=== PATIENT | female | born 1980 | race Two or more races ===

== ENCOUNTER 2023-09-04 16:08 | Inpatient (IN) | payer OTHER ==
[~2023-09-04] VITALS: Ht 157.5 cm; Wt 54.8 kg
[2023-09-04 17:06] LABS: Urine Bacteria NONE SEEN /hpf (None Seen); Urine Blood Negative /uL (Negative); Urine Clarity Clear (Clear); Urine Color Colorless (Yellow); Urine Protein, UAD 2+ (Negative); Urine Specific Gravity 1.005 (1.001-1.035); Urine Urobilinogen Normal (Negative); Urine WBC 2 /hpf (0 - 5); Urine pH 8.5 (5.0-9.0)
[2023-09-04 17:19] LABS: Basophils # (auto) 0 10 ^3/uL (0-0.2); Basophils % (auto) 0.3 % (0.0-2.0); Eosinophils # (auto) 0.1 10 ^3/uL (0-0.8); Eosinophils % (auto) 0.5 % (0.0-7.0); Hematocrit 32.5 % (36.0-46.0); Hemoglobin 10.6 g/dL (12.2-16.2); Lymphocytes # (auto) 0.4 10 ^3/uL (0.4-5.4); Lymphocytes % (auto) 3.3 % (10.0-50.0); Mean Corpuscular Hemoglobin 30.6 pg (28.0-32.0); Mean Corpuscular Hgb Conc. 32.7 g/dL (32.0-36.0); Mean Corpuscular Volume 93.6 fL (80.0-100.0); Monocytes # (auto) 1.5 10 ^3/uL (0-1.3); Neutrophils # (auto) 9.8 10 ^3/uL (1.6-8.6); Neutrophils % (auto) 82.9 % (37.0-80.0); Red Blood Cells 3.47 10^6/uL (4.0-5.20); Red Cell Distribution Width 13.9 % (11.8-14.3); White Blood Cell 11.9 10^3/uL (4.4-10.8)
[2023-09-04 17:27] LABS: Alanine Aminotransferase 12 U/L (7-40); Alkaline Phosphatase 86 U/L (46-116); Anion Gap 5 (5-15); Aspartate Aminotransferase 16 U/L (13-40); BUN/Creatinine Ratio 3.7 (10.0-20.0); Blood Urea Nitrogen 15 mg/dL (9-23); Carbon Dioxide 35 mmol/L (20-30); Chloride 94 mmol/L (98-107); Glucose 140 mg/dL (74-106); Lipase 49 U/L (12-53); Potassium 3.6 mmol/L (3.5-5.1); Sodium 134 mmol/L (136-145)
[2023-09-04 17:28] LABS: Albumin 3.7 g/dL (3.2-4.8); Bilirubin, Total 0.7 mg/dL (0.2-1.0); Total Protein 6.8 g/dL (5.7-8.2)
[2023-09-04] MEDS ORDERED: metroNIDAZOLE 500MG/100ML 100 ML IV ONE (19:00)
[2023-09-04] MEDS: DICYCLOMINE HCL (10MG/ML) 2 ML AMPULE IM ONE (20:16)
[2023-09-04] MEDS: PANTOPRAZOLE 40 MG/10 ML VIAL INJ IV ONE (20:16)
[2023-09-04] MEDS: cefTRIAXone 1GM/50ML D5W 50 ML IV ONE (20:16)
[2023-09-04] MEDS: ONDANSETRON HCL 4 MG/2 ML VIAL IV PRN (20:18)
[2023-09-04] MEDS: MORPHINE SULFATE INJ 2 MG/ml SYRG IV PRN (20:18)
[2023-09-04] MEDS: metroNIDAZOLE 500MG/100ML 100 ML IV SCH (22:55)
[2023-09-05] MEDS ORDERED: CLIN1CAP70 PO (01:09)
[2023-09-05] MEDS ORDERED: HYDR50TA47 PO (01:09)
[2023-09-05] MEDS ORDERED: SEVE800T8 PO (01:09)
[2023-09-05] MEDS ORDERED: FURO40TA4 PO (01:09)
[2023-09-05 05:00] VITALS: BP 147/87; PULSE 56; RESP 16; TEMP 98.3; O2SAT 98
[2023-09-05] MEDS: DICYCLOMINE HCL 10 MG CAP PO SCH (06:02)
[2023-09-05 07:21] LABS: Basophils # (auto) 0 10 ^3/uL (0-0.2); Basophils % (auto) 0.3 % (0.0-2.0); Eosinophils # (auto) 0.1 10 ^3/uL (0-0.8); Eosinophils % (auto) 1.5 % (0.0-7.0); Hematocrit 27.1 % (36.0-46.0); Hemoglobin 9.1 g/dL (12.2-16.2); Lymphocytes # (auto) 0.6 10 ^3/uL (0.4-5.4); Lymphocytes % (auto) 6.3 % (10.0-50.0); Mean Corpuscular Hemoglobin 31.5 pg (28.0-32.0); Mean Corpuscular Hgb Conc. 33.4 g/dL (32.0-36.0); Mean Corpuscular Volume 94.4 fL (80.0-100.0); Monocytes # (auto) 1.6 10 ^3/uL (0-1.3); Monocytes % (auto) 17.2 % (0.0-12.0); Neutrophils # (auto) 7.1 10 ^3/uL (1.6-8.6); Neutrophils % (auto) 74.7 % (37.0-80.0); Red Blood Cells 2.87 10^6/uL (4.0-5.20); Red Cell Distribution Width 13.7 % (11.8-14.3); White Blood Cell 9.5 10^3/uL (4.4-10.8)
[2023-09-05 07:44] LABS: Albumin 3.1 g/dL (3.2-4.8); Alkaline Phosphatase 66 U/L (46-116); Anion Gap 3 (5-15); Aspartate Aminotransferase 14 U/L (13-40); BUN/Creatinine Ratio 4.7 (10.0-20.0); Bilirubin, Total 0.4 mg/dL (0.2-1.0); Blood Urea Nitrogen 24 mg/dL (9-23); Calcium 8.1 mg/dL (8.5-10.1); Carbon Dioxide 33 mmol/L (20-30); Chloride 98 mmol/L (98-107); Glucose 88 mg/dL (74-106); Sodium 134 mmol/L (136-145); Total Protein 5.6 g/dL (5.7-8.2)
[2023-09-05 07:56] LABS: Alanine Aminotransferase < 9 U/L (7-40)
[2023-09-05 09:00] VITALS: BP 137/70; PULSE 81; RESP 17; TEMP 98.6; O2SAT 96
[2023-09-05] MEDS: cefTRIAXone 1GM/50ML D5W 50 ML IV SCH (10:10)
[2023-09-05] MEDS: PANTOPRAZOLE 40 MG/10 ML VIAL INJ IV SCH (10:10)
[2023-09-05 13:00] VITALS: BP 130/70; PULSE 80; RESP 16; TEMP 97.6; O2SAT 95
[2023-09-05 17:00] VITALS: BP 142/78; PULSE 85; RESP 18; TEMP 98.2; O2SAT 97
[2023-09-05] MEDS: VANCOMYCIN HCL 250 MG CAP PO SCH (17:20)
[2023-09-05 21:00] VITALS: BP 133/73; PULSE 84; RESP 18; TEMP 98.6; O2SAT 98
[2023-09-06 01:00] VITALS: BP 120/60; PULSE 82; RESP 17; TEMP 98.6; O2SAT 98
[2023-09-06 05:00] VITALS: BP 132/64; PULSE 82; RESP 16; TEMP 98.4; O2SAT 97
[2023-09-06 08:00] VITALS: BP 140/82; PULSE 85; RESP 16; TEMP 98.8; O2SAT 93
[2023-09-06 12:00] VITALS: BP 139/85; PULSE 81; RESP 16; TEMP 98.3; O2SAT 97
[2023-09-06 16:00] VITALS: BP 139/72; PULSE 87; RESP 16; TEMP 98.1; O2SAT 97
[2023-09-06 21:00] VITALS: BP 150/86; PULSE 87; RESP 16; TEMP 98; O2SAT 97
[2023-09-07 01:00] VITALS: BP 135/77; PULSE 82; RESP 18; TEMP 98.2; O2SAT 97
[2023-09-07 05:00] VITALS: BP 150/86; PULSE 87; RESP 16; TEMP 98; O2SAT 99
[2023-09-07 08:00] VITALS: PULSE 93; RESP 18; O2SAT 93
[2023-09-07 09:00] VITALS: BP 135/90; PULSE 93; RESP 18; TEMP 98.8; O2SAT 95
[2023-09-07] MEDS ORDERED: VANC125PO PO (10:26)
[2023-09-07] MEDS ORDERED: METR-344 PO (10:26)
[2023-09-07 12:45] VITALS: BP 135/86; PULSE 89; RESP 16; TEMP 98.5; O2SAT 96
[2023-09-08] MEDS ORDERED: SODIUM CHL 0.9% 1000 ML BAG XX ONE (07:00)
[2023-09-08] MEDS ORDERED: EPOETIN ALFA-EPBX 4,000 UNIT/ML VIAL SC ONE (21:00)
== END 2023-09-07 14:59 | disposition home or self-care (01) | DRG 720 ==
LOC: ER 16:08 → WEST WING 19:00 → OVERFLOW 19:00 → WEST WING 21:52
PROVIDERS: ADMIT Nurse Practitioner Family; ATTEND Family Medicine
DX: A41.9 Sepsis, unspecified organism (principal); I12.0 Hypertensive chronic kidney disease with stage 5 chronic kidney disease or end stage renal disease; N18.6 End stage renal disease; A04.72 Enterocolitis due to Clostridium difficile, not specified as recurrent; E87.1 Hypo-osmolality and hyponatremia; D63.1 Anemia in chronic kidney disease; R18.8 Other ascites; K52.9 Noninfective gastroenteritis and colitis, unspecified; Z99.2 Dependence on renal dialysis
CPT/HCPCS: 36415; 71045; 74176; 80053; 81001; 81025; 82140; 82270; 83690; 85025; 85048; 87040; 87081; 87493; 93306; C9113; G0378; J2405; J3490

== ENCOUNTER 2023-10-15 17:57 | Inpatient (IN) | payer OTHER ==
[~2023-10-15] VITALS: Ht 157.5 cm; Wt 52.4 kg
[~2023-10-15 17:57] MED LIST: CLIN1CAP70 PO; FURO40TA4 PO; HYDR50TA47 PO; METR-344 PO; SEVE800T8 PO; VANC125PO PO
[2023-10-15 19:01] LABS: Urine Bacteria None Seen /hpf (None Seen)
[2023-10-15 19:15] LABS: Urine Blood Negative /uL (Negative); Urine Clarity Turbid (Clear); Urine Color Light-Yellow (Yellow); Urine Protein, UAD 3+ (Negative); Urine Specific Gravity 1.009 (1.001-1.035); Urine Urobilinogen Normal (Negative); Urine WBC 9 /hpf (0 - 5); Urine pH 8.5 (5.0-9.0)
[2023-10-15 19:40] LABS: Basophils # (auto) 0.1 10 ^3/uL (0-0.2); Basophils % (auto) 0.8 % (0.0-2.0); Eosinophils # (auto) 0.2 10 ^3/uL (0-0.8); Eosinophils % (auto) 3.2 % (0.0-7.0); Lymphocytes # (auto) 1.3 10 ^3/uL (0.4-5.4); Lymphocytes % (auto) 17.3 % (10.0-50.0); Mean Corpuscular Hemoglobin 29.5 pg (28.0-32.0); Mean Corpuscular Hgb Conc. 31.3 g/dL (32.0-36.0); Mean Corpuscular Volume 94.4 fL (80.0-100.0); Monocytes # (auto) 0.7 10 ^3/uL (0-1.3); Monocytes % (auto) 8.7 % (0.0-12.0); Neutrophils # (auto) 5.3 10 ^3/uL (1.6-8.6); Red Blood Cells 3.39 10^6/uL (4.0-5.20); Red Cell Distribution Width 15.6 % (11.8-14.3); White Blood Cell 7.5 10^3/uL (4.4-10.8)
[2023-10-15 20:56] LABS: Glucose 100 mg/dL (74-106)
[2023-10-15 20:57] LABS: Alkaline Phosphatase 69 U/L (46-116); BUN/Creatinine Ratio 7.6 (10.0-20.0); Blood Urea Nitrogen 55 mg/dL (9-23); Lipase 99 U/L (12-53)
[2023-10-15 20:58] LABS: Alanine Aminotransferase 17 U/L (7-40)
[2023-10-15 20:59] LABS: Albumin 3.9 g/dL (3.2-4.8); Aspartate Aminotransferase 20 U/L (13-40); Bilirubin, Total 0.4 mg/dL (0.2-1.0); Total Protein 7.2 g/dL (5.7-8.2)
[2023-10-15 21:10] LABS: Anion Gap 9 (5-15); Carbon Dioxide 27 mmol/L (20-30); Chloride 97 mmol/L (98-107); Sodium 133 mmol/L (136-145)
[2023-10-15 21:30] VITALS: O2SAT 100
[2023-10-15] MEDS: ALBUTEROL SULF 2.5 MG/0.5ML(0.5%) NEB SOLN NEB ONE (21:30)
[2023-10-15] MEDS ORDERED: MORPHINE SULFATE INJ 2 MG/ml SYRG IV PRN (22:15)
[2023-10-15] MEDS ORDERED: TEMAZEPAM 15 MG CAP PO PRN (22:15)
[2023-10-15] MEDS ORDERED: NITROGLYCERIN 0.4 MG SL TAB SL PRN (22:15)
[2023-10-15] MEDS ORDERED: HYDROcodone-ACET 5/325MG TAB PO PRN (22:15)
[2023-10-15] MEDS ORDERED: ONDANSETRON HCL 4 MG/2 ML VIAL IV PRN (22:15)
[2023-10-15] MEDS ORDERED: ACETAMINOPHEN 325 MG TAB PO PRN (22:15)
[2023-10-15] MEDS ORDERED: ALBUTEROL SULF 2.5 MG/0.5ML(0.5%) NEB SOLN NEB PRN (22:15)
[2023-10-15] MEDS: DEXTROSE (50%) 50ML SYRG IV ONE (22:37)
[2023-10-15] MEDS: CALCIUM GLUC 1,000mg/50ml-NS 50 ML IV ONE (22:39)
[2023-10-15] MEDS: InsuLIN REG 1unit/0.01ml Soln (100units/ml) IV ONE (22:39)
[2023-10-15] MEDS: SODIUM ZIRCONIUM CYCL 10 GM PAK PO ONE (22:39)
[2023-10-15] MEDS: SODIUM BICARB 8.4% 50Meq/50ml SYR INJ IV ONE (22:41)
[2023-10-15 22:58] VITALS: PULSE 91; RESP 16; O2SAT 100
[2023-10-16] VITALS (9 sets, daily range): BP systolic 137–159; BP diastolic 73–84; PULSE 73–91; RESP 15–20; TEMP 97.8–98.3; O2SAT 95–100
[2023-10-16 05:29] LABS: Alanine Aminotransferase 16 U/L (7-40); Albumin 3.5 g/dL (3.2-4.8); Alkaline Phosphatase 72 U/L (46-116); Anion Gap 11 (5-15); Aspartate Aminotransferase 18 U/L (13-40); Bilirubin, Total 0.4 mg/dL (0.2-1.0); Blood Urea Nitrogen 59 mg/dL (9-23); Calcium 9.4 mg/dL (8.7-10.4); Carbon Dioxide 27 mmol/L (20-30); Chloride 97 mmol/L (98-107); Glucose 113 mg/dL (74-106); Sodium 135 mmol/L (136-145); Total Protein 6.5 g/dL (5.7-8.2)
[2023-10-16 05:34] LABS: Basophils # (auto) 0 10 ^3/uL (0-0.2); Basophils % (auto) 0.5 % (0.0-2.0); Eosinophils # (auto) 0.2 10 ^3/uL (0-0.8); Eosinophils % (auto) 2.3 % (0.0-7.0); Hematocrit 28.8 % (36.0-46.0); Hemoglobin 9.5 g/dL (12.2-16.2); Mean Corpuscular Hemoglobin 30.6 pg (28.0-32.0); Mean Corpuscular Hgb Conc. 33.1 g/dL (32.0-36.0); Mean Corpuscular Volume 92.5 fL (80.0-100.0); Monocytes # (auto) 0.8 10 ^3/uL (0-1.3); Monocytes % (auto) 9.8 % (0.0-12.0); Neutrophils # (auto) 5.8 10 ^3/uL (1.6-8.6); Neutrophils % (auto) 74.4 % (37.0-80.0); Red Blood Cells 3.11 10^6/uL (4.0-5.20); Red Cell Distribution Width 15.4 % (11.8-14.3); White Blood Cell 7.8 10^3/uL (4.4-10.8)
[2023-10-16 06:30] LABS: Potassium 5.7 mmol/L (3.5-5.1)
[2023-10-16] MEDS: hydrALAZINE HCL 25 MG TAB PO SCH (06:30)
[2023-10-16] MEDS: SODIUM ZIRCONIUM CYCL 10 GM PAK PO ONE ×2 (07:15→18:29)
[2023-10-16 07:42] LABS: INR 1.16 (0.9-1.15); Partial Thromboplastin Time 27.5 SEC (24.5-34.5); Prothrombin Time 12.2 sec (9.3-11.8)
[2023-10-16] MEDS: SEVELAMER 800 MG TAB PO SCH (08:00)
[2023-10-16] MEDS: CARVEDILOL 12.5 MG TAB PO SCH (10:13)
[2023-10-16] MEDS: B-COMPLEX W/ C & FOLIC ACID(NEPHROVITE TAB) PO SCH (10:13)
[2023-10-16 14:43] LABS: Body Fluid Red Blood Cells 328 CUMM (0-2000); Body Fluid White Blood Cells 148 CUMM (0-200)
[2023-10-16 14:48] LABS: Body Fluid Polymorphonuclear 8 % (0-25)
[2023-10-17] VITALS (8 sets, daily range): BP systolic 139–161; BP diastolic 75–88; PULSE 76–87; RESP 17–20; TEMP 97.5–98.9; O2SAT 93–99
[2023-10-17 06:58] LABS: Hematocrit 29.5 % (36.0-46.0); Hemoglobin 9.6 g/dL (12.2-16.2)
[2023-10-17 12:05] LABS: Chloride 97 mmol/L (98-107); Sodium 133 mmol/L (136-145)
[2023-10-17 12:06] LABS: Anion Gap 11 (5-15); Calcium 8.6 mg/dL (8.7-10.4); Carbon Dioxide 25 mmol/L (20-30)
[2023-10-17 12:11] LABS: BUN/Creatinine Ratio 8.3 (10.0-20.0); Glucose 99 mg/dL (74-106)
[2023-10-17 12:26] LABS: Blood Urea Nitrogen 69 mg/dL (9-23); Potassium 5.9 mmol/L (3.5-5.1)
[2023-10-17 13:07] LABS: Protein, Body Fluid 4.5 g/dL (.)
[2023-10-17] MEDS: SODIUM CHL 0.9% 1000 ML BAG XX ONE (14:31)
[2023-10-17] MEDS ORDERED: EPOETIN ALFA-EPBX 10,000 UNIT/1ML VIAL SC ONE (21:00)
== END 2023-10-17 18:58 | disposition home or self-care (01) ==
LOC: ER 17:57 → TELE 22:19 → TELE-CENTR 10-16 15:15
PROVIDERS: ADMIT Nurse Practitioner; ATTEND Nurse Practitioner Acute Care
PROC: 0W9G3ZZ Drainage of Peritoneal Cavity, Percutaneous Approach (ICD-10-PCS; principal; 2023-10-16)
PROC: 5A1D70Z Performance of Urinary Filtration, Intermittent, Less than 6 Hours Per Day (ICD-10-PCS; 2023-10-17)
DX: K74.60 Unspecified cirrhosis of liver (principal); I12.0 Hypertensive chronic kidney disease with stage 5 chronic kidney disease or end stage renal disease; J90 Pleural effusion, not elsewhere classified; N18.6 End stage renal disease; R18.8 Other ascites; D63.8 Anemia in other chronic diseases classified elsewhere; E87.70 Fluid overload, unspecified; E87.5 Hyperkalemia; Z99.2 Dependence on renal dialysis
CPT/HCPCS: 36415; 49083; 71045; 74176; 76705; 76942; 80048; 80053; 81001; 81025; 82962; 83690; 83880; 83986; 84484; 85014; 85018; 85025; 85610; 85730; 87205; 89051; 90935; 94644; G0378; J1815

== ENCOUNTER 2023-11-09 22:44 | Emergency (ER) | payer OTHER ==
[~2023-11-09] VITALS: Ht 157.5 cm; Wt 51.6 kg
[2023-11-10 02:55] VITALS: BP 145/91; PULSE 95; RESP 18; TEMP 97.7; O2SAT 98
== END 2023-11-10 02:54 | disposition home or self-care (01) ==
LOC: ER 22:44
DX: I12.0 Hypertensive chronic kidney disease with stage 5 chronic kidney disease or end stage renal disease (principal); N18.6 End stage renal disease; R18.8 Other ascites; Z98.890 Other specified postprocedural states; Z79.899 Other long term (current) drug therapy